=== PATIENT | female | born 1985 | race Caucasian/White ===

== ENCOUNTER 2018-08-24 19:03 | Emergency (ER) | payer SELFPAY ==
[2018-08-24 19:31] VITALS: BP 125/85
--- NOTE | 2018-08-24 20:07 | UC ---
Throat Pain/Nasal Tab HPI - HPI Summary HPI Summary: Pt left w/o being seen by provider - History of Current Complaint Chief Complaint: UCGeneralIllness Stated Complaint: THROAT PAIN Time Seen by Provider: 08/24/18 20:01 Hx Obtained From: Patient Hx Last Menstrual Period: 08/24/18 Pain Intensity: 0 - Allergies/Home Medications Allergies/Adverse Reactions: Allergies Allergy/AdvReac Type Severity Reaction Status Date / Time acetaminophen [From Vicodin] Allergy Intermediate Rash Verified 08/24/18 19:31 hydrocodone [From Vicodin] Allergy Intermediate Rash Verified 08/24/18 19:31 Home Medications: Home Medications NK [No Home Medications Reported] 08/24/18 [History Confirmed 08/24/18] PMH/Surg Hx/FS Hx/Imm Hx - Surgical History Surgical History: None - Social History Alcohol Use: None Substance Use Type: None Smoking Status (MU): Current Every Day Smoker Physical Exam Vital Signs: Initial Vital Signs Temp 99.1 F 08/24/18 19:27 Pulse 96 08/24/18 19:27 Resp 18 08/24/18 19:27 BP 125/85 08/24/18 19:27 Pulse Ox 100 08/24/18 19:27 Discharge - Discharge Plan Referrals: Vel Gusman MD [Primary Care Provider] -
== END 2018-08-24 20:30 | disposition left against medical advice (07) ==
LOC: UCEAST 19:03
DX: R07.0 Pain in throat (principal); F17.200 Nicotine dependence, unspecified, uncomplicated; Z88.5 Allergy status to narcotic agent; Z53.21 Procedure and treatment not carried out due to patient leaving prior to being seen by health care provider
CPT/HCPCS: 87651

== ENCOUNTER 2018-10-15 23:46 | Emergency (ER) | payer OTHER ==
[2018-10-15 23:55] VITALS: BP 109/80
== END 2018-10-16 04:08 | disposition left against medical advice (07) ==
LOC: ED 23:46
DX: Z53.21 Procedure and treatment not carried out due to patient leaving prior to being seen by health care provider (principal)
CPT/HCPCS: 99281

== ENCOUNTER 2018-10-17 19:40 | Emergency (ER) | payer OTHER ==
[2018-10-17 21:21] LABS: ABS Eosinophils 0.1 10^3/ul (0-0.6); ABS Lymphocytes 1.4 10^3/ul (1.0-4.8); ABS Monocytes 0.9 10^3/ul (0-0.8); ABS Neutrophils 5.3 10^3/ul (1.5-7.7); Eosinophil % 0.9 %; Hematocrit 34 % (35-47); Hemoglobin 11.7 g/dL (12.0-16.0); Lymphocyte % 18.7 %; Mean Corpuscular HGB Conc 35 g/dL (31-36); Mean Corpuscular Hemoglobin 32 pg (27-31); Mean Corpuscular Volume 93 fL (80-97); Mean Platelet Volume 9.3 fL (7.4-10.4); Platelet Count 138 10^3/uL (150-450); Red Blood Count 3.63 10^6 /uL (3.70-4.87); Red Cell Distribution Width 12 % (10-15); White Blood Count 7.8 10^3/uL (3.5-10.8)
[2018-10-17 21:46] LABS: ALT 86 U/L (7-52); AST 91 U/L (13-39); Albumin 3.6 g/dL (3.2-5.2); Albumin/Globulin Ratio 1.3 (1-3); Alkaline Phosphatase 106 U/L (34-104); Anion Gap 7 mmol/L (2-11); BUN/Creatinine Ratio 22.7 (8-20); Blood Urea Nitrogen 17 mg/dL (6-24); C Reactive Protein 112.94 mg/L (<8.01); CO2 Carbon Dioxide 26 mmol/L (22-32); Calcium 8.3 mg/dL (8.6-10.3); Chloride 105 mmol/L (101-111); EGFR African American 108.4 (>60); EGFR Non-African American 89.6 (>60); Globulin 2.8 g/dL (2-4); Glucose 157 mg/dL (70-100); Potassium 3.7 mmol/L (3.5-5.0); Sodium 138 mmol/L (135-145); Total Protein 6.4 g/dL (6.4-8.9)
[2018-10-17 21:52] LABS: HCG Pregnancy < 0.60 mIU/mL
[2018-10-17] MEDS ORDERED: Iohexol 350* (CONTRAST) 500 ML MDV IV ONE (21:59)
--- NOTE | 2018-10-17 23:08 | ED ---
Headache - HPI Summary HPI Summary: 33-year-old female presents with rash for the past day. She also been having occasional sharp headaches with neck pain on the right side of her neck. She states pain is located on right neck and radiates up to her head. She admits to some photophobia. She is not currently having headache but does have the neck pain. headache was not worst of life but was intense. She denies any injury. No numbness and tingling. No weakness. No fevers. No neck stiffness. No chest pain shortness of breath. She denies any known tick exposures. - History Of Current Complaint Chief Complaint: EDExtremityLower Stated Complaint: NECK SWOLLEN/HEADACHE PER PT Time Seen by Provider: 10/17/18 20:22 Hx Last Menstrual Period: 08/24/18 - Allergies/Home Medications Allergies/Adverse Reactions: Allergies Allergy/AdvReac Type Severity Reaction Status Date / Time acetaminophen [From Vicodin] Allergy Intermediate Rash Verified 08/24/18 19:31 hydrocodone [From Vicodin] Allergy Intermediate Rash Verified 08/24/18 19:31 PMH/Surg Hx/FS Hx/Imm Hx Endocrine/Hematology History: Denies: Hx Diabetes, Hx Thyroid Disease Cardiovascular History: Denies: Hx Hypertension Respiratory History: Denies: Hx Asthma, Hx Chronic Obstructive Pulmonary Disease (COPD) GI History: Denies: Hx Ulcer - Immunization History Immunizations Up to Date: Yes Infectious Disease History: No Infectious Disease History: Denies: Hx Hepatitis, Hx Human Immunodeficiency Virus (HIV), Traveled Outside the [place] in Last 30 Days - Family History Known Family History: Positive: Non-Contributory - Social History Alcohol Use: Occasionally Alcohol Amount: recovering Substance Use Type: Reports: None Substance Use Comment - Amount & Last Used: recovering addiction Smoking Status (MU): Heavy Every Day Tobacco Smoker Review of Systems Negative: Fever Negative: Chest Pain Negative: Shortness Of Breath Positive: Myalgia - neck pain right sided Positive: Rash Positive: Headache All Other Systems Reviewed And Are Negative: Yes Physical Exam Triage Information Reviewed: Yes Vital Signs On Initial Exam: Initial Vitals Temp Pulse Resp BP Pulse Ox 98.9 F 93 18 118/63 99 10/17/18 19:43 10/17/18 19:43 10/17/18 19:43 10/17/18 19:43 10/17/18 19:43 Vital Signs Reviewed: Yes Appearance: Positive: Well-Appearing Skin: Positive: Warm, Dry, Other - purple rash with some clearing with erythema around such Head/Face: Positive: Normal Head/Face Inspection Eyes: Positive: Normal, EOMI, NANO, Conjunctiva Clear ENT: Positive: Normal ENT inspection, Pharynx normal, TMs normal Neck: Positive: Other: - tenderness right side of neck Respiratory/Lung Sounds: Positive: Clear to Auscultation, Breath Sounds Present Cardiovascular: Positive: Normal, RRR Abdomen Description: Positive: Nontender, Soft Bowel Sounds: Positive: Present Musculoskeletal: Positive: Normal Neurological: Positive: Sensory/Motor Intact, Alert, Oriented to Person Place, Time, CN Intact II-III Psychiatric: Positive: Normal Diagnostics - Vital Signs Vital Signs Temp Pulse Resp BP Pulse Ox 10/17/18 19:43 98.9 F 93 18 118/63 99 - Laboratory Lab Results: Lab Results 10/17/18 10/17/18 Range/Units 21:13 21:13 WBC 7.8 (3.5-10.8) 10^3/uL RBC 3.63 L (3.70-4.87) 10^6 /uL Hgb 11.7 L (12.0-16.0) g/dL Hct 34 L (35-47) % MCV 93 (80-97) fL MCH 32 H (27-31) pg MCHC 35 (31-36) g/dL RDW 12 (10-15) % Plt Count 138 L (150-450) 10^3/uL MPV 9.3 (7.4-10.4) fL Neut % (Auto) 68.7 % Lymph % (Auto) 18.7 % Foard % (Auto) 11.4 % Eos % (Auto) 0.9 % Baso % (Auto) 0.3 % Absolute Neuts (auto) 5.3 (1.5-7.7) 10^3/ul Absolute Lymphs (auto) 1.4 (1.0-4.8) 10^3/ul Absolute Monos (auto) 0.9 H (0-0.8) 10^3/ul Absolute Eos (auto) 0.1 (0-0.6) 10^3/ul Absolute Basos (auto) 0.0 (0-0.2) 10^3/ul Absolute Nucleated RBC 0.0 10^3/ul Nucleated RBC % 0.0 Sodium 138 (135-145) mmol/L Potassium 3.7 (3.5-5.0) mmol/L Chloride 105 (101-111) mmol/L Carbon Dioxide 26 (22-32) mmol/L Anion Gap 7 (2-11) mmol/L BUN 17 (6-24) mg/dL Creatinine 0.75 (0.51-0.95) mg/dL Est GFR ( Amer) 108.4 (>60) Est GFR (Non-Af Amer) 89.6 (>60) BUN/Creatinine Ratio 22.7 H (8-20) Glucose 157 H (70-100) mg/dL Calcium 8.3 L (8.6-10.3) mg/dL Total Bilirubin 0.30 (0.2-1.0) mg/dL AST 91 H (13-39) U/L ALT 86 H (7-52) U/L Alkaline Phosphatase 106 H (34-104) U/L C-Reactive Protein 112.94 H (<8.01) mg/L Total Protein 6.4 (6.4-8.9) g/dL Albumin 3.6 (3.2-5.2) g/dL Globulin 2.8 (2-4) g/dL Albumin/Globulin Ratio 1.3 (1-3) Beta HCG, Quant < 0.60 mIU/mL Result Diagrams: 10/17/18 21:13 10/17/18 21:13 Lab Statement: Any lab studies that have been ordered have been reviewed, and results considered in the medical decision making process. - CT brain CT Interpretation Completed By: Radiologist Summary of CT Findings: IMPRESSION: No acute intracranial abnormality. cta CT Interpretation Completed By: Radiologist Summary of CT Findings: IMPRESSION: Normal head CTA. Headache Course/Dx - Course Course Of Treatment: 33-year-old female presents with rash for the past day. She also been having occasional sharp headaches with neck pain on the right side of her neck. She states pain is located on right neck and radiates up to her head. She admits to some photophobia. She is not currently having headache but does have the neck pain. headache was not worst of life but was intense. She denies any injury. No numbness and tingling. No weakness. No fevers. No neck stiffness. No chest pain shortness of breath. She denies any known tick exposures. On exam has purple rash with erythema around it with a little bit of a clearing. Will treat as potential Lyme disease rash with doxycycline. Has tenderness over right side of neck. Normal neuro exam. Patient is most tender over her carotid. Will get a CTA due to headache and neck pain. CT brain normal. CTA is normal. told follow-up with primary. Patient understands agrees with plan. - Diagnoses Differential Diagnosis/HQI/PQRI: Migraine, Viral Syndrome, Other - lyme, cellulitis Provider Diagnoses: Headache, Neck pain, Rash Discharge - Sign-Out/Discharge Documenting (check all that apply): Patient Departure Patient Received Moderate/Deep Sedation with Procedure: No - Discharge Plan Condition: Good Disposition: HOME Prescriptions: DOXYcycline CAP(*) [DOXYcycline 100MG CAP(*)] 100 mg PO BID #27 cap Patient Education Materials: Cellulitis (ED), Acute Headache (ED) Referrals: Vel Gusman MD [Primary Care Provider] - Additional Instructions: will treat for potential lyme with doxycycline twice a day for 14 days, take with food take tyenlol or ibuprofen as needed for headache Follow up with primary Return to ED if develop any new or worsening symptoms - Billing Disposition and Condition Condition: GOOD Disposition: Home
[2018-10-17] MEDS ORDERED: DOXYcycline CAP(*) 100 MG PO ONE (23:09)
[2018-10-17 23:21] VITALS: BP 118/67
== END 2018-10-17 23:17 | disposition home or self-care (01) ==
LOC: ED 19:40
DX: R21 Rash and other nonspecific skin eruption (principal); R51 Headache; M54.2 Cervicalgia; F17.210 Nicotine dependence, cigarettes, uncomplicated; Z88.5 Allergy status to narcotic agent; Z88.8 Allergy status to other drugs, medicaments and biological substances
CPT/HCPCS: 36415; 70450; 70496; 70498; 80053; 84702; 85025; 86140; 99282; A9270-GY; Q9967

== ENCOUNTER 2019-02-21 21:04 | Emergency (ER) | payer OTHER ==
--- NOTE | 2019-02-21 21:19 | ED ---
- HPI Summary HPI Summary: Pt is a 33 y/o F presenting to the ED with a chief complaint of vaginal bleeding. A0. Pt states she has had heavy vaginal bleeding initially onset about 15 minutes SPARE PERSON with associated abdominal pain. She is currently 3 months . LNMP 3 months ago. - History of Current Complaint Chief Complaint: EDOBProblems Stated Complaint: 3 MONTHS - BLEEDING PER PT Hx Obtained From: Patient Chief Complaint: Vaginal Bleeding Onset/Duration: Started Minutes Ago, Still Present Timing: Constant, Lasting Minutes Severity: Mild Current Severity: Mild Pain Intensity: 3 Location of Pain: Suprapubic Character: Cramping Aggravating Factors: Nothing Alleviating Factors: Nothing Associated Signs and Symptoms: Positive: Vaginal Bleeding or Discharge - Assessment Hx Now: No - Allergies/Home Medications Allergies/Adverse Reactions: Allergies Allergy/AdvReac Type Severity Reaction Status Date / Time acetaminophen [From Vicodin] Allergy Intermediate Rash Verified 02/21/19 21:09 hydrocodone [From Vicodin] Allergy Intermediate Rash Verified 02/21/19 21:09 Home Medications: Home Medications NK [No Home Medications Reported] 02/21/19 [History Confirmed 02/21/19] PMH/Surg Hx/FS Hx/Imm Hx Previously Healthy: Yes Endocrine/Hematology History: Denies: Hx Diabetes, Hx Thyroid Disease Cardiovascular History: Denies: Hx Hypertension Respiratory History: Denies: Hx Asthma, Hx Chronic Obstructive Pulmonary Disease (COPD) GI History: Denies: Hx Ulcer Infectious Disease History: No Infectious Disease History: Denies: Hx Hepatitis, Hx Human Immunodeficiency Virus (HIV), Traveled Outside the [place] in Last 30 Days - Family History Known Family History: Negative: Diabetes - Social History Alcohol Use: Occasionally Alcohol Amount: recovering Hx Substance Use: Yes Substance Use Type: Reports: None Substance Use Comment - Amount & Last Used: recovering addiction Hx Tobacco Use: Yes Smoking Status (MU): Heavy Every Day Tobacco Smoker Review of Systems Positive: Abdominal Pain Positive: other - vaginal bleeding All Other Systems Reviewed And Are Negative: Yes Physical Exam - Summary Physical Exam Summary: Appearance: Young woman coming in very uncomfortable, hyperventilating, but with nml BP. Skin: Warm, dry, no obvious rash Eyes: sclera anicteric, no conjunctival pallor ENT: mucous membranes moist, pharynx appears normal Neck: Supple, nontender Respiratory: Clear to auscultation, no signs of respiratory distress Cardiovascular: Somewhat tachycardic. No murmurs. Normal distal pulses in tibial and radial bilaterally. Abdomen: Gravid abd c/w dates. Mild lower abd uterine tenderness, normal active bowel sounds present Musculoskeletal: Normal, Strength/ROM Intact Neurological: A&Ox3, awake and alert, mentation is normal, speech is fluent and appropriate Psychiatric: affect is normal, does not appear anxious or depressed - Physical Exam Triage Information Reviewed: Yes Vital Signs Reviewed: Yes Procedures - Sedation Patient Received Moderate/Deep Sedation with Procedure: No Diagnostics - Vital Signs Vital Signs Temp Pulse Resp BP Pulse Ox 02/21/19 21:06 99.2 F 106 18 132/79 100 - Laboratory Result Diagrams: 02/21/19 22:26 02/21/19 22:26 Lab Statement: Any lab studies that have been ordered have been reviewed, and results considered in the medical decision making process. - Ultrasound Transvaginal US Ultrasound Interpretation Completed By: Radiologist Summary of Ultrasound Findings: 1. Viable intrauterine with an ultrasound age of 11 weeks 2 days which is discordant with the clinical age. This changes the AMANDEEP to 09/14/2019. 2. Low lying placenta. ED physician has reviewed this report. Course/Dx - Course Course Of Treatment: Pt is a 33 y/o F presenting to the ED with a chief complaint of vaginal bleeding. A0. Pt states she has had heavy vaginal bleeding initially onset about 15 minutes SPARE PERSON with associated abdominal pain. She is currently 3 months . LNMP 3 months ago. Pt's physical exam is nml aside from pt hyperventilating, HR being somewhat tachycardic, and abd is gravid with some mild lower abd uterine tenderness. Transvaginal US shows: 1. Viable intrauterine with an ultrasound age of 11 weeks 2 days which is discordant with the clinical age. This changes the AMANDEEP to 09/14/2019. 2. Low lying placenta. 2305 - I spoke with Dr. Fe Wolf about the pt's present condition who recommends following up outpatient and giving strict return precautions. She will be d/c'ed with dx of threatened miscarriage. She is stable and agreeable with this plan. - Diagnoses Provider Diagnoses: Threatened miscarriage Discharge ED - Sign-Out/Discharge Documenting (check all that apply): Patient Departure - Discharge Plan Condition: Good Disposition: HOME Patient Education Materials: Threatened Miscarriage (ED) Forms: *Work Release Referrals: Fe Wolf MD [Medical Doctor] - Additional Instructions: The US and blood tests we did tonight all look good. The baby appears healthy with a good heartbeat and movement. As you are feeling better and the bleeding has slowed it is ok for you to go home at this point. Whether this is the first sign of a pending miscarriage is difficult to say at this point. Please contact your PILLAR WORKER or the listed PILLAR WORKER lithopone mill worker for us, Dr. Wolf, in the morning and get in for a followup visit tomorrow. - Billing Disposition and Condition Condition: GOOD Disposition: Home - Attestation Statements Document Initiated by Scribe: Yes Documenting Scribe: Malinda Jon Provider For Whom Ava is Documenting (Include Credential): Uzair Zaman MD. Scribe Attestation: IMalinda, scribed for Uzair Zaman MD. on 02/22/19 at 0527. Scribe Documentation Reviewed: Yes Provider Attestation: The documentation as recorded by the scribe, Malinda Jon accurately reflects the service I personally performed and the decisions made by me, Uzair Zaman MD. Status of Scribe Document: Viewed Consult Consult: 3040 - I spoke with Dr. Fe Wolf about the pt's present condition who recommends following up outpatient and giving strict return precautions.
[2019-02-21] MEDS ORDERED: Morphine 4 MG/ML VIAL (1 ml) 4 MG/ML VIAL IV ONE (21:22)
[2019-02-21] MEDS ORDERED: NS 0.9% 1000 ML** 1,000 ML IV ONE (21:22)
--- OUTSIDE RECORDS SUMMARY | 2019-02-21 22:13 | XMS REPORT | Continuity of Care Document ---
:1985 External Reference #:[id number] Author Name Vel Gusman M.D. Address [address] [place] [address] Problems Description No Information Available Social History Type Date Description Comments Sex Unknown Tobacco Use Start: Unknown Current Cigarette Smoker pt has been a half a pack a day smoker since age 16 ETOH Use Denies alcohol use Tobacco Use Start: Unknown Patient is a current smoker, smokes every day Smoking Status Reviewed: 01/26/19 Patient is a current smoker, smokes every day Allergies, Adverse Reactions, Alerts Description No Known Drug Allergies Medications Active Medications SIG Qnty Indications Ordering Provider Date Clindamycin HCL 1 tab by mouth 30caps K02.9 Vel Gusman, 01/26/2019 300mg three times a M.D. Capsules day Flagyl 1 tab by mouth 30tabs N77.1 Vel Gusman, 01/26/2019 250mg Tablets three times a M.D. day Zoloft 1 by mouth 90tabs F41.9 Vel Gusman, 08/18/2017 100mg Tablets every day-[facility] M.D. F33.9 Betamethasone apply to affected 45gm L20.9 Vel Gusman, 07/30/2015 Dipropionate area three times a M.D. 0.05% Cream day as needed Suboxone 1 by mouth every Unknown 4-1mg Film day-[facility] Immunizations Description No Information Available Vital Signs Date Vital Result Comment 01/26/2019 1:19pm BP Systolic 110 mmHg BP Diastolic 60 mmHg Height 66 inches 5'6" Weight 122.00 lb BMI (Body Mass Index) 19.7 kg/m2 Heart Rate 63 /min Respiratory Rate 18 /min 08/18/2017 3:48pm BP Systolic 120 mmHg BP Diastolic 68 mmHg Height 66 inches 5'6" Weight 107.00 lb BMI (Body Mass Index) 17.3 kg/m2 Heart Rate 98 /min Respiratory Rate 18 /min Results Test Acquired Date Facility Test Result H/L Range Note CBC Auto 10/17/2018 [facility] White Blood 7.8 10^3/uL Normal 3.5- 10.8 Diff Count Red Blood Count 3.63 10^6/uL Low 3.70-4.87 Hemoglobin 11.7 g/dL Low 12.0-16.0 Hematocrit 34 % Low 35-47 Mean Corpuscular Volume 93 fL Normal 80-97 Mean Corpuscular Hemoglobin 32 pg High 27-31 Mean Corpuscular HGB Conc 35 g/dL Normal 31-36 Red Cell Distribution Width 12 % Normal 10-15 Platelet Count 138 10^3/uL Low 150-450 Mean Platelet Volume 9.3 fL Normal 7.4-10.4 Abs Neutrophils 5.3 10^3/uL Normal 1.5-7.7 Abs Lymphocytes 1.4 10^3/uL Normal 1.0-4.8 Abs Monocytes 0.9 10^3/uL High 0-0.8 Abs Eosinophils 0.1 10^3/uL Normal 0-0.6 Abs Basophils 0.0 10^3/uL Normal 0-0.2 Abs Nucleated RBC 0.0 10^3/uL Granulocyte % 68.7 % Lymphocyte % 18.7 % Monocyte % 11.4 % Eosinophil % 0.9 % Basophil % 0.3 % Nucleated Red Blood Cells % 0.0 Comp Metabolic Panel 10/17/2018 [facility] Sodium 138 mmol/L Normal 135-145 Potassium 3.7 mmol/L Normal 3.5-5.0 Chloride 105 mmol/L Normal 101-111 Co2 Carbon Dioxide 26 mmol/L Normal 22-32 Anion Gap 7 mmol/L Normal 2-11 Glucose 157 mg/dL High 70-100 Blood Urea Nitrogen 17 mg/dL Normal 6-24 Creatinine 0.75 mg/dL Normal 0.51-0.95 BUN/Creatinine Ratio 22.7 High 8-20 Calcium 8.3 mg/dL Low 8.6-10.3 Total Protein 6.4 g/dL Normal 6.4-8.9 Albumin 3.6 g/dL Normal 3.2-5.2 Globulin 2.8 g/dL Normal 2-4 Albumin/Globulin Ratio 1.3 Normal 1-3 Total Bilirubin 0.30 mg/dL Normal 0.2-1.0 Alkaline Phosphatase 106 U/L High 34-104 Alt 86 U/L High 7-52 Ast 91 U/L High 13-39 Egfr Non- 89.6 >60 Egfr 108.4 >60 1 Laboratory test 10/17/2018 [facility] C Reactive 112.94 mg/L High < 8.01 finding Protein HCG < 0.60 mIU/mL 2 Laboratory test 08/24/2018 [facility] Rapid Strep Negative Negative 3 finding Molecular 1 Because ethnic data is not always readily available, this report includes an eGFR for both -Americans and non- Americans. The National Kidney Disease Education Program (NKDEP) does not endorse the use of the MDRD equation for patients that are not between the ages of 18 and 70, are , have extremes of body size, muscle mass, or nutritional status, or are non- or non-. According to the National Kidney Foundation, irrespective of diagnosis, the stage of the disease is based on the level of kidney function: Stage Description GFR(mL/min/1.73 m(2)) 1 Kidney damage with normal or decreased GFR 90 2 Kidney damage with mild decrease in GFR 60-89 3 Moderate decrease in GFR 30-59 4 Severe decrease in GFR 15-29 5 Kidney failure <15 (or dialysis) 2 <5.0 Negative 5.0 - 25.0 Indeterminate (Repeat testing recommended after 72 hours) >25.0 Positive Perimenopausal women can display HCG levels of up to 20 mIU/mL 3 Group Worker: [id number] Procedures Description No Information Available Medical Devices Description No Information Available Encounters Type Date Location Provider Dx Diagnosis Office Visit 01/26/2019 Vel Sutton, L20.9 Atopic dermatitis, 1:00p M.D. unspecified J30.9 Allergic rhinitis, unspecified F11.21 Opioid dependence, in remission F41.9 Anxiety disorder, unspecified F17.210 Nicotine dependence, cigarettes, uncomplicated K02.9 Dental caries, unspecified R51 Headache F33.9 Major depressive disorder, recurrent, unspecified R59.0 Localized enlarged lymph nodes N77.1 Vaginitis, vulvitis and vulvovaginitis in dis classd elswhr Z00.01 Encounter for general adult medical exam w abnormal findings Assessments Date Code Description Provider 01/26/2019 L20.9 Atopic dermatitis, unspecified Vel Gusman M.D. 01/26/2019 J30.9 Allergic rhinitis, unspecified Vel Gusman M.D. 01/26/2019 F11.21 Opioid dependence, in remission Vel Gusman M.D. 01/26/2019 F41.9 Anxiety disorder, unspecified Vel Gusman M.D. 01/26/2019 F17.210 Nicotine dependence, cigarettes, Vel Gusman M.D. uncomplicated 01/26/2019 K02.9 Dental caries, unspecified Vel Gusman M.D. 01/26/2019 R51 Headache Vel Gusman M.D. 01/26/2019 F33.9 Major depressive disorder, recurrent, Vel Gusman M.D. unspecified 01/26/2019 R59.0 Localized enlarged lymph nodes Vel Gusman M.D. 01/26/2019 N77.1 Vaginitis, vulvitis and vulvovaginitis in Vel Gusman M.D. diseases classified elsewhere 01/26/2019 Z00.01 Encounter for general adult medical Vel Gusman M.D. examination with abnormal findings Plan of Treatment 01/26/2019 - Vel Gusman M.D.L20.9 Atopic dermatitis, unspecifiedComments: SKIN CARE INSTRUCTIONS LOTION OR BABY OIL 2-3 APPLICATION PER DAYUSE MOISTURIZING SOAPAVOID PROLONGED WATER EXPOSUREAVOID USING HOT WATER IN [id number] Allergic rhinitis, unspecifiedComments:INCREASE PO FLUID USE ANTIHISTAMINE PRN SECOND HAND SMOKING AVOIDANCE SMOKING [id number] Opioid dependence, in remissionComments:DISSCUSED RISK AND HALFWAY COMPLICATIONSF/U WITH MHC/DETOX DYZEOOGV79.9 Anxiety disorder, unspecifiedComments:COUNCELLING AND REASSURANCE RELAXATION TECHNIQUES DISCUSSEDCOUNSELED RE: STRESSORS IN LIFE AVOID ALLENERGY/HIGH CAFFEINE IZOWMWD94.210 Nicotine dependence, cigarettes, uncomplicatedComments:SMOKING CESSATION ROEUPWVQHEMY25.9 Dental caries, unspecifiedNew Medication:Clindamycin HCL 300 mg - 1 tab by mouth three times a dayComments:F/U WITH DENTAL SMOKNG [id number] HeadacheComments:LUZLAABUB38.9 Major depressive disorder, recurrent, unspecifiedComments:COUNCELLING AND REASSURANCE RELAXATION TECHNIQUES DISCUSSED COUNSELED RE: STRESSORS IN LIFER59.0 Localized enlarged lymph nodesComments:OBSERVE AND RTC IF PERSIST OR MORE LN BXGHAMF60.1 Vaginitis, vulvitis and vulvovaginitis in diseases classified elsewhereNew Medication:Flagyl 250 mg - 1 tab by mouth three times a dayComments:OBSERVEGYN HYGEINE PEEFLMBWJ61.01 Encounter for general adult medical examination with abnormal findingsComments:GOOD NUTRITION / EXERCISEDENTAL/ FLOSSING/ SELF CAREDROWNING/ SUN SAFETYSEAT BELT/ DRIVING SAFETYSPORT BIKE/ HELMET USESPORTS/ INJURY PREVENTIONVIOLENCE PREVENTION/ GUN SAFETYPARENTING ADVICE"SAFE AT HOME"SEX EDUCATION/ COUNSELINGBREAST/ TESTICULAR SELF EXAMEDUCATION GOALS/ ACTIVITIESLIMIT TV/ INTERNETUSETOBACCO/ ALCOHOL/ DRUGS / INHALANTSPEER REFUSAL SKILLSSOCIAL INTERACTIONFAMILY FUNCTIONINGSELF CONTROLDEPRESSION/ ANXIETYNEXT APPOINTMENTYEARLY PHYSICAL WELLNESS EVALUATION F /U WITH OB /REHAB AID FOR PAP Functional Status Functional Condition Comment Date Status Glasses Active Mental Status Description No Information Available Referrals Description No Information Available
[2019-02-21 22:34] LABS: ABS Eosinophils 0.1 10^3/ul (0-0.6); ABS Monocytes 0.8 10^3/ul (0-0.8); ABS Neutrophils 7.9 10^3/ul (1.5-7.7); Eosinophil % 0.5 %; Hematocrit 35 % (35-47); Hemoglobin 12.1 g/dL (12.0-16.0); Lymphocyte % 18.5 %; Mean Corpuscular HGB Conc 34 g/dL (31-36); Mean Corpuscular Hemoglobin 32 pg (27-31); Mean Corpuscular Volume 92 fL (80-97); Mean Platelet Volume 8.2 fL (7.4-10.4); Platelet Count 211 10^3/uL (150-450); Red Blood Count 3.82 10^6 /uL (3.70-4.87); Red Cell Distribution Width 12 % (10-15); White Blood Count 10.7 10^3/uL (3.5-10.8)
[2019-02-21 22:49] LABS: Albumin 3.9 g/dL (3.2-5.2); Albumin/Globulin Ratio 1.5 (1-3); BUN/Creatinine Ratio 20.8 (8-20); Calcium 9.1 mg/dL (8.6-10.3); EGFR African American 181.4 (>60); EGFR Non-African American 149.9 (>60); Globulin 2.6 g/dL (2-4); Potassium 3.6 mmol/L (3.5-5.0); Total Bilirubin 0.3 mg/dL (0.2-1.0); Total Protein 6.5 g/dL (6.4-8.9)
[2019-02-22 00:54] VITALS: BP 124/68
== END 2019-02-21 23:58 | disposition home or self-care (01) ==
LOC: ED 21:04
DX: O20.0 Threatened abortion (principal); O99.331 Smoking (tobacco) complicating pregnancy, first trimester; F17.210 Nicotine dependence, cigarettes, uncomplicated; Z3A.11 11 weeks gestation of pregnancy
CPT/HCPCS: 36415; 76817; 80053; 85025; 86850; 86900; 86901; 96360; 99282